=== PATIENT | female | born 1950 | race Caucasian/White ===

== ENCOUNTER → 2023-08-11 06:38 | Outpatient (REF) | payer MEDICARE, SELFPAY | LOC: HWRAD 06:38 | PROVIDERS: ATTENDING PHYSICIAN Student in an Organized Health Care Education/Training Program | DX: M79.641 Pain in right hand (principal); M54.50 Low back pain, unspecified | CPT/HCPCS: 72100; 73120 ==

== ENCOUNTER → 2023-12-28 06:21 | Outpatient (REF) | payer MEDICARE, SELFPAY | LOC: HWRAD 06:21 | PROVIDERS: ATTENDING PHYSICIAN Student in an Organized Health Care Education/Training Program | DX: E80.6 Other disorders of bilirubin metabolism (principal) | CPT/HCPCS: 76700 ==

== ENCOUNTER → 2024-01-28 06:29 | Outpatient (REF) | payer MEDICARE, SELFPAY | LOC: HWWDC 06:29 | PROVIDERS: ATTENDING PHYSICIAN Student in an Organized Health Care Education/Training Program | DX: Z12.31 Encounter for screening mammogram for malignant neoplasm of breast (principal) | CPT/HCPCS: 77063; 77067 ==

== ENCOUNTER → 2024-04-25 08:14 | Outpatient (REF) | payer MEDICARE, SELFPAY | LOC: HWRAD 08:14 | PROVIDERS: ATTENDING PHYSICIAN Student in an Organized Health Care Education/Training Program | DX: E78.5 Hyperlipidemia, unspecified (principal); Z00.00 Encounter for general adult medical examination without abnormal findings | CPT/HCPCS: 77080 ==

== ENCOUNTER → 2024-05-10 07:24 | Outpatient (REF) | payer MEDICARE, SELFPAY | LOC: PAVMRI 07:24 | PROVIDERS: ATTENDING PHYSICIAN Student in an Organized Health Care Education/Training Program | DX: E78.5 Hyperlipidemia, unspecified (principal); M54.2 Cervicalgia; G89.29 Other chronic pain; Z00.00 Encounter for general adult medical examination without abnormal findings | CPT/HCPCS: 72156; A9575 ==

== ENCOUNTER → 2024-08-21 10:57 | Outpatient (REF) | payer MEDICARE, SELFPAY | LOC: MRI 3T 10:57 | PROVIDERS: ATTENDING PHYSICIAN Physician Assistant; FAMILY PHYSICIAN Student in an Organized Health Care Education/Training Program | DX: M54.16 Radiculopathy, lumbar region (principal) | CPT/HCPCS: 72148 ==

== ENCOUNTER → 2025-01-20 08:04 | Outpatient (REF) | payer MEDICARE, SELFPAY | LOC: HWRAD 08:04 | PROVIDERS: ATTENDING PHYSICIAN Urology; PRIMARYCARE PHYSICIAN Student in an Organized Health Care Education/Training Program | DX: N39.41 Urge incontinence (principal); N39.3 Stress incontinence (female) (male) | CPT/HCPCS: 76770; 76856 ==

== ENCOUNTER → 2025-02-02 06:41 | Outpatient (REF) | payer MEDICARE, SELFPAY | LOC: HWWDC 06:41 | PROVIDERS: ATTENDING PHYSICIAN Student in an Organized Health Care Education/Training Program | DX: Z12.31 Encounter for screening mammogram for malignant neoplasm of breast (principal); G89.29 Other chronic pain | CPT/HCPCS: 77063; 77067 ==